=== PATIENT | male | born 1960 | race Caucasian/White ===

== ENCOUNTER 2017-10-31 01:41 | Emergency (ER) | payer OTHER ==
[2017-10-31] MEDS ORDERED: LIDOCAINE 5% (700 MG) TRANSDERMAL ADH..PATCH TP ONE (01:49)
[2017-10-31] MEDS ORDERED: KETOROLAC TROMETHAMINE INJ/PF 30 MG/1 ML SDV IV ONE (01:49)
[2017-10-31] MEDS ORDERED: FENTANYL CITRATE INJ/PF 100 MCG/2 ML AMPUL IV PRN (02:14)
--- NOTE | 2017-10-31 02:29 | ER Document Report ---
ED General - General Stated Complaint: SHORTNESS OF BREATH Time Seen by Provider: 10/31/17 01:48 Notes: Patient is a 57 year old male with a past medical history of hypertension, hyperlipidemia, recently diagnosed with bronchitis and currently being treated with antitussive agents as well as doxycycline who presents with severe right lower rib pain. Patient states this pain started abruptly after a very vigorous episode of coughing. He states that since that time he has had a severe, constant, stabbing pain to his right lower ribs worsened by any breathing or movement. Nothing improves the pain. He denies any history of similar symptoms in the past. He denies any history of DVT or pulmonary embolus. He does not smoke and has no known history of emphysema or asthma. The patient does note some mild associated shortness of breath which he attributes to not being able to take a deep inhale due to the pain. TRAVEL OUTSIDE OF THE [place] IN LAST 30 DAYS: No Past Medical History - General Information source: Patient - Social History Smoking Status: Never Smoker Frequency of alcohol use: None Drug Abuse: None Lives with: Family Family History: Reviewed & Not Pertinent Review of Systems - Review of Systems Notes: Constitutional: Negative for fever. HENT: Negative for sore throat. Eyes: Negative for visual changes. Cardiovascular: Negative for chest pain. Respiratory: Positive for shortness of breath and persistent coughing Gastrointestinal: Negative for abdominal pain, vomiting or diarrhea. Genitourinary: Negative for dysuria. Musculoskeletal: Negative for back pain. Skin: Negative for rash. Neurological: Negative for headaches, weakness or numbness. 10 point ROS negative except as marked above and in HPI. Physical Exam - Vital signs Vitals: Temp Pulse Resp BP Pulse Ox 98.7 F 82 15 136/78 H 96 10/31/17 01:49 10/31/17 01:49 10/31/17 01:49 10/31/17 01:49 10/31/17 01:49 Interpretation: Normal Notes: PHYSICAL EXAMINATION: GENERAL: Appears to be in significant discomfort. No respiratory distress. Moderately anxious HEAD: Atraumatic, normocephalic. EYES: Pupils equal round and reactive to light, extraocular movements intact, sclera anicteric, conjunctiva are normal. ENT: nares patent, oropharynx clear without exudates. Moist mucous membranes. NECK: Normal range of motion, supple without lymphadenopathy LUNGS: Breath sounds clear to auscultation bilaterally and equal. No wheezes rales or rhonchi. HEART: Regular rate and rhythm without murmurs Chest wall: Exquisite pain on palpation of the right lower ribs and the intercostal spaces. ABDOMEN: Soft, nontender, normoactive bowel sounds. No guarding, no rebound. No masses appreciated. EXTREMITIES: Normal range of motion, no pitting or edema. No cyanosis. NEUROLOGICAL: No focal neurological deficits. Moves all extremities spontaneously and on command. PSYCH: Moderately anxious SKIN: Warm, Dry, normal turgor, no rashes or lesions noted. Course - Re-evaluation Re-evalutation: 10/31/17 02:26 Patient presents with acute right lower rib pain after a vigorous coughing episode most consistent with acute costochondritis. Examination is otherwise benign with the exception of extreme palpation tenderness to the right lower rib spaces. Vitals with otherwise within normal limits. X-ray without evidence of pneumothorax. Clinical history not consistent with acute pulmonary embolus and he has a Wells score of 0. Chest x-ray does not demonstrate any evidence of pneumonia. Will symptomatically treat and then reassess the patient. 10/31/17 03:03 Labs unremarkable. Patient is symptomatically improved. Overall clinical history is most consistent with acute bronchitis with associated muscular skeletal strain. At this time will discharge with return precautions and follow -up recommendations. Verbal discharge instructions given a the bedside and opportunity for questions given. Medication warnings reviewed. Patient is in agreement with this plan and has verbalized understanding of return precautions and the need for primary care follow-up in the next 24-72 hours. - Vital Signs Vital signs: Temp Pulse Resp BP Pulse Ox 98.7 F 82 15 136/78 H 96 10/31/17 01:49 10/31/17 01:49 10/31/17 01:49 10/31/17 01:49 10/31/17 01:49 - Laboratory Result Diagrams: 10/31/17 02:10 10/31/17 02:10 Laboratory results interpreted by me: 10/31/17 02:10 WBC 15.1 H RBC 5.59 H RDW 14.5 H Absolute Lymphocytes 4.9 H Absolute Monocytes 1.7 H - Diagnostic Test Radiology reviewed: Image reviewed, Reports reviewed Radiology results interpreted by me: 10/31/17 02:28 Chest x-ray: No acute infiltrate or pneumothorax - EKG Interpretation by Me Additional EKG results interpreted by me: 10/31/17 02:29 Sinus rhythm. Rate 74. No ST elevations or depressions. QTC is 426. Discharge - Discharge Clinical Impression: Bronchitis, Rib pain on right side, Pleuritic pain Condition: Good Disposition: HOME, SELF-CARE Additional Instructions: You were seen for symptoms most consistent with bronchitis. This can take up to 12 weeks to fully resolve. This is generally due to a viral infection. Please follow-up with your primary doctor in the next 2-3 days. Return if you develop worsening cough, vomiting, fever >100.4, pass out, begin coughing blood, or have any other symptoms that are concerning to you. Please use the medications prescribed today as directed. For your pain: Take ibuprofen 600 mg and acetaminophen 1000 mg every 6 hours together as needed for pain. If this does not control your pain you may take 15 mg of oral morphine every 4 hours as needed. Please be very careful about using the oral morphine and only use this for severe pain. You should also apply topical lidocaine to the affected area as well as ice packs to add additional pain control. Prescriptions: Morphine Sulfate [Morphine Ir 15 mg Tablet] 15 mg PO Q4HP PRN #12 tablet PRN Reason: Benzonatate [Tessalon Perles 100 mg Capsule] 100 mg PO Q8HP PRN #40 capsule PRN Reason:
[2017-10-31 02:33] LABS: ABSOLUTE BASOPHILS # (AUTO) 0.1 10^3/uL (0.0-0.2); ABSOLUTE EOSINOPHILS # (AUTO) 0.5 10^3/uL (0.0-0.6); ABSOLUTE LYMPHOCYTES (AUTO) 4.9 10^3/uL (0.5-4.7); ABSOLUTE MONOCYTES (AUTO) 1.7 10^3/uL (0.1-1.4); ABSOLUTE NEUT (AUTO) 7.8 10^3/uL (1.7-8.2); BASOPHILS % (AUTO) 0.6 % (0-2); EOSINOPHILS % (AUTO) 3.5 % (0-6); HEMATOCRIT 49.2 % (37.9-51.0); HEMOGLOBIN 16.4 g/dL (13.5-17.0); LYMPHOCYTES % (AUTO) 32.4 % (13-45); MEAN CORPUSCULAR HEMOGLOBIN 29.3 pg (27.0-33.4); MEAN CORPUSCULAR HGB CONC 33.4 g/dL (32.0-36.0); MEAN CORPUSCULAR VOLUME 88 fl (80-97); MONOCYTES % (AUTO) 11.5 % (3-13); PLATELET COUNT 218 10^3/uL (150-450); RED BLOOD COUNT 5.59 10^6/uL (4.35-5.55); RED CELL DISTRIBUTION WIDTH 14.5 % (11.5-14.0); TOTAL CELLS COUNTED % (AUTO) 100 %; WHITE BLOOD COUNT 15.1 10^3/uL (4.0-10.5)
--- NOTE | 2017-10-31 02:59 | RADIOLOGY REPORT (SQ) ---
EXAM DESCRIPTION: XR CHEST 1 VIEW COMPLETED DATE/TME: 10/31/2017 01:48 CLINICAL HISTORY: sob COMPARISON: None. FINDINGS: Single frontal view of the chest. The cardiomediastinal silhouette has normal size and contour. No consolidation, pneumothorax, or pleural effusion. No displaced rib fractures identified. Low lung volumes. Leads overlie the chest. Upper abdominal soft tissues are unremarkable. IMPRESSION: 1. No acute pulmonary process identified.
[2017-10-31] MEDS ORDERED: BENZONATATE 100 MG CAPSULE PO ONE (03:04)
[2017-10-31] MEDS ORDERED: ALBUTEROL SULFATE HFA (90 MCG/PUFF) 200 PUFF/8.5 GM MDI IH ONE (03:04)
[2017-10-31] MEDS ORDERED: DEXAMETHASONE 4 MG TABLET PO ONE (03:04)
[2017-10-31 03:17] LABS: ANION GAP 14 (5-19); BLOOD UREA NITROGEN 17 mg/dL (7-20); CALCIUM 9.5 mg/dL (8.4-10.2); CARBON DIOXIDE 26 mmol/L (22-30); CHLORIDE 104 mmol/L (98-107); GLUCOSE 93 mg/dL (75-110); POTASSIUM 3.8 mmol/L (3.6-5.0)
[2017-10-31 04:05] VITALS: BP 107/66
--- NOTE | 2017-10-31 07:47 | EKG REPORT ---
SEVERITY:- ABNORMAL ECG - SINUS RHYTHM INCOMPLETE RIGHT BUNDLE BRANCH BLOCK : Confirmed by: Sumeet Patterson MD 31-Oct-2017 07:47:16
== END 2017-10-31 04:07 | disposition home or self-care (01) ==
LOC: ER 01:41
DX: J40 Bronchitis, not specified as acute or chronic (principal); R06.02 Shortness of breath; R07.81 Pleurodynia; R05 Cough; I10 Essential (primary) hypertension; F41.9 Anxiety disorder, unspecified
CPT/HCPCS: 93005; 99285; 96374; 96375; 36415; 85025; 80048; 84484; 71045; 93010; J3010; J1885; J3490